=== PATIENT | female | born 1965 | race Two or more races ===

== ENCOUNTER 2024-05-24 18:12 | Emergency (ER) | payer OTHER, MEDICAID ==
[~2024-05-24] VITALS: Ht 157.5 cm; Wt 98.8 kg
[2024-05-24 19:37] LABS: Urine Bacteria FEW /hpf (None Seen); Urine Blood Negative /uL (Negative); Urine Budding Yeast OCCASIONAL /hpf (None Seen); Urine Clarity Turbid (Clear); Urine Color Light-Yellow (Yellow); Urine Mucus FEW (None Seen); Urine Protein, UAD Negative (Negative); Urine Specific Gravity 1.024 (1.001-1.035); Urine Urobilinogen Normal (Negative); Urine WBC 2 /hpf (0 - 5); Urine pH 5.5 (5.0-9.0)
[2024-05-24 20:35] VITALS: BP 142/65; PULSE 87; RESP 20; TEMP 98.2; O2SAT 97
[2024-05-24] MEDS ORDERED: PRED10TA PO (21:27)
[2024-05-24] MEDS ORDERED: ALBUAER3 IN (21:27)
[2024-05-24] MEDS ORDERED: AMOX875T4 PO (21:27)
[2024-05-24] MEDS ORDERED: GUAI200T6 PO (21:51)
== END 2024-05-24 23:26 | disposition home or self-care (01) ==
LOC: ER 18:12
DX: J06.9 Acute upper respiratory infection, unspecified (principal); E11.9 Type 2 diabetes mellitus without complications; Z98.890 Other specified postprocedural states
CPT/HCPCS: 71045; 81001; 82962

== ENCOUNTER 2024-12-18 21:25 | Emergency (ER) | payer OTHER, MEDICAID ==
[~2024-12-18] VITALS: Ht 157.5 cm; Wt 88.7 kg
[~2024-12-18 21:25] MED LIST: ALBUAER3 IN; AMOX875T4 PO; GUAI200T6 PO
--- NOTE | 2024-12-18 22:06 | ED.PDOC ---
GI ASSESSMENT HPI Comments 59 y.o female with PMHx of DM, presents to the ED for a chief complaint of diarrhea that started one day ago. Patient reports multiple episodes of diarrhea per day and states she is now feeling nauseous and developed cold sweats. Patient denies any recent new food, travel outside the country, vomiting, bloody stool, fever. Vital signs were stable on arrival. Chief Complaint: Diarrhea Time Seen by MD: 22:00 Primary Care Provider: KARINA Reviewed Notes: Nurses Notes, Allergies Allergies: Coded Allergies: Diphenhydramine (Verified Adverse Reaction, Unknown, LOW TOLERANCE, 05/24/24) Home Meds Active Scripts Loperamide Hcl ([facility] ANTI-DIARRHEAL) 2 Mg Cap, 2 MG PO TID, #20 CAP Prov:NACHO IZAGUIRRE PAC 12/19/24 Dicyclomine Hcl (BENTYL CAPSULE) 10 Mg Cp, 1 CAP PO Q6HPRN, #20 CAP 0 Refills Prov:NACHO IZAGUIRRE 12/19/24 Ondansetron Odt 4MG Tab (ZOFRAN PO) 4 Mg Tb, 4 MG PO Q6HP PRN, #15 TAB ODT TAB-DISSOLVE IN MOUTH, THEN SWALLOW Prov:NACHO IZGAUIRRE 12/19/24 Guaifenesin (Guaifenesin) 200 Mg Tab, 200 MG PO Q4HPRN, #20 TAB 0 Refills Prov:RODRICK KEARNS 05/24/24 Albuterol Sulfate (VENTOLIN MDI) 90 Mcg Ih, 2 PUFF IN Q6HPRN, #1 INH 0 Refills Prov:RODRICK KEARNS 05/24/24 Amoxicillin & Pot Clavulanate (Amoxicillin/Potassium Cla) 875 Mg Tab, 1 TAB PO BID for 7 Days, #14 TAB 0 Refills Prov:RODRICK KEARNS 05/24/24 Information Source: Patient Mode of Arrival: Ambulatory Timing: Days (1) Duration: Since onset Prehospital treatment: None Quality: None Vomitus: None Stool: Moderate, Loose, Watery Severity: Moderate Recent: None Recent Hx of: None Pain Location: None Modifying Factors: Nothing Associated sign and symptoms: Nausea, Diarrhea Past Medical History PAST MEDICAL HISTORY: DM Surgical History: Denies all surgeries PHOTO EQUIPMENT TECHNICIAN History: No Pertinent PHOTO EQUIPMENT TECHNICIAN History Family History Family History: Unknown Social History Smoker: Non-Smoker Alcohol: Denies ETOH Use Drugs: Denies Drug Use Lives In: Home Constitutional: reports: sweats; denies: chills, diaphoresis, fatigue, fever, malaise, weakness, others EENTM: denies: blurred vision, double vision, ear bleeding, ear discharge, ear drainage, ear pain, ear ringing, eye pain, eye redness, hearing loss, mouth pain, mouth swelling, nasal discharge, nose bleeding, nose congestion, nose pain, photophobia, tearing, throat pain, throat swelling, voice changes, others Respiratory: denies: cough, hemoptysis, orthopnea, SOB at rest, shortness of breath, SOB with excertion, stridor, wheezing, others Cardiovascular: denies: chest pain, dizzy spells, diaphoresis, Dyspnea on exertion, edema, irregular heart beat, left arm pain, lightheadedness, palpitations, PND, syncope, others Gastrointestinal: reports: diarrhea, nausea; denies: abdomen distended, abdominal pain, blood streaked bowels, constipated, dysphagia, difficulty swallowing, hematemesis, melena, poor appetite, poor fluid intake, rectal ble eding, rectal pain, vomiting, others Genitourinary: denies: abnormal vagina bleeding, burning, dyspareunia, dysuria, flank pain, frequency, hematuria, incontinence, pain, , vagina discharge, urgency, others Neurological: denies: dizziness, fainting, headache, left sided numbness, left sided weakness, numbness, paresthesia, pre-existing deficit, right sided numbness, right sided weakness, seizure, speech problems, tingling, tremors, weakness, others Musculoskeletal: denies: back pain, gout, joint pain, joint swelling, muscle pain, muscle stiffness, neck pain, others Integumetry: denies: bruises, change in color, change in hair/nails, dryness, laceration, lesions, lumps, rash, wounds, others Allergic/Immunocompromised: denies: Difficulty Healing, Frequent Infections, Hi ves, Itching, others Hematologic/Lymphatic: denies: anemia, blood clots, easy bleeding, easy bruising, swollen glands, others Endocrine: denies: excessive hunger, excessive sweating, excessive thirst, excessive urination, flushing, intolerance to cold, intolerance to heat, unexplained weight gain, unexplained weight loss, others Psychiatric: denies: anxiety, bipolar disorder, depression, hopeless, panic disorder, schizophrenia, sleepless, suicidal, others All Other Systems: Reviewed and Negative Physical Exam General Appearance: No Apparent Distress, Normal HEENT: Normal ENT Inspection, Pharynx Normal, TMs Normal Neck: Full Range of Motion, Non-Tender, Normal, Normal Inspection Respiratory: Chest Non-Tender, Lungs Clear, No Accessory Muscle Use, No Respiratory Distress, Normal Breath Sounds Cardiovascular: No Edema, No JVD, No Murmur, No Gallop, Normal Peripheral Pulses, Regular Rate/Rhythm Breast Exam: Deferred Gastrointestinal: No Pulsatile Mass, Normal Bowel Sounds, Soft, Other (Diffuse bilateral lower abdominal/pelvic tenderness to palpation. No signs of trauma. Difficult to assess due to body habitus.) Genitalia: Deferred Pelvic: Deferred Rectal: Deferred Extremities: No calf tenderness, Normal capillary refill, Normal inspection, Normal range of motion, Non-tender, No pedal edema Musculoskeletal : Apperance: Normal Neurologic: Alert, No Motor Deficits, Normal Affect, Normal Mood, No Sensory Deficits Cerebellar Function: Normal Reflexes: Normal Skin: Dry, Normal Color, Warm Lymphatic: No Adenopathy Was a procedure done? Was a procedure done?: No GI differential Dx Differential Diagnosis: UTI, Dehydration, Food Poisoning, Bacterial, Viral X-Ray, Labs, Meds, VS Vital Signs Date Time Temp Pulse Resp B/P (MAP) Pulse Ox O2 Delivery O2 Flow Rate FiO2 12/19/24 00:57 98.1 102 16 140/77 (98) 95 98.1 12/19/24 00:57 102 16 95 Room Air* 0 21 12/18/24 21:32 98.7 119 20 120/81 (94) 96 Lab Test 12/19/24 02:46 12/19/24 00:47 Range/Units Urine Color Yellow Yellow Urine Clarity Turbid H Clear Urine pH 5.5 5.0-9.0 Urine Specific [place] 1.030 1.001-1.035 Urine Protein 1+ H Negative Urine Ketones 1+ H Negative Urine Blood Negative Negative /uL Urine Nitrite Negative Negative Urine Bilirubin Negative Negative Urine Urobilinogen 2 H Negative mg/dL Urine Leukocyte Esterase Negative Negative /uL Urine RBC 7 0 - 4 /hpf Urine Microscopic WBC 3 0-5 /HPF Urine Squamous Epithelial Cells Few <5 /hpf Urine Bacteria None seen None Seen /hpf Urine Hyaline Casts Mod 0 - 2 /lpf Urine Mucus Few None Seen Urine Glucose 3+ H Normal mg/dL Influenza Type A Antigen Negative Negative Influenza Type B Antigen Negative Negative SARS-CoV-2 Antigen (Rapid) Negative NEGATIVE Current Medications Medications (Trade) Dose Ordered Sig/John Route Start Time Stop Time Status Last Admin Dicyclomine HCl (Bentyl Injection) 20 mg ONCE ONCE IM 12/18/24 22:00 12/18/24 22:01 DC 12/19/24 00:50 X-Ray, Labs, Meds, VS Comment Swabs studies were unremarkable for any COVID or influenza. Urine was pending at time of this note. Patient care will be transferred to Dr. Machado for evaluation of urine results when returned. Once reviewed, he will respond accordingly. Time of 1ST Reevaluation: 01:44 Reevaluation 1ST: Improved Consultation: PCP Patient Education/Counseling: Diagnosis, Treatment, Prognosis Family Education/Counseling: Diagnosis, Treatment, No Family Present Departure 1 Departure Time of Disposition: :45 Impression: Primary Impression: Viral gastroenteritis Additional Impression: UTI (urinary tract infection) Qualified Codes: N30.00 - Acute cystitis without hematuria Disposition: HOME / SELF CARE / HOMELESS Condition: Stable Additional Instructions: Advised patient utilize medication as needed for symptomatic relief as well as maintaining high quality hydration throughout illness event. Patient should be matching oral fluid intake with diarrhea events. e-Prescriptions Levofloxacin Hemihydrate (LEVAQUIN 500 MG) 500 Mg Tab 1 TAB PO DAILY, #7 TAB Prov: DOT MACHADO MD 12/19/24 Loperamide Hcl ([facility] ANTI-DIARRHEAL) 2 Mg Cap 2 MG PO TID, #20 CAP Prov: NACHO IZAGUIRRE PAC 12/19/24 Dicyclomine Hcl (BENTYL CAPSULE) 10 Mg Cp 1 CAP PO Q6HPRN, #20 CAP 0 Refills Prov: NACHO IZAGUIRRE 12/19/24 Ondansetron Odt 4MG Tab (ZOFRAN PO) 4 Mg Tb 4 MG PO Q6HP PRN, #15 TAB ODT TAB-DISSOLVE IN MOUTH, THEN SWALLOW Prov: NACHO IZAGUIRRE PAC 12/19/24 Discharged With: Self, Friend Critical Care Note Critical Care Time?: No Stability Stability form required: No I personally scribed for ZINANACHO KC ([email or web address]) on 12/18/24 at 22:06. Electronically submitted by Svetlana Chavez ([facility]). NACHO IZAGUIRRE Dec 18, 2024 22:06 DOT MACHADO MD Dec 19, 2024 05:28
[2024-12-19] MEDS: ONDANSETRON ODT 4 MG TAB PO ONE (00:50)
[2024-12-19] MEDS: DICYCLOMINE HCL (10MG/ML) 2 ML AMPULE IM ONE (00:50)
[2024-12-19 00:57] VITALS: BP 140/77; PULSE 102; RESP 16; TEMP 98.1; O2SAT 95
[2024-12-19 01:40] LABS: Rapid Influenza A Negative (Negative); Rapid Influenza B Negative (Negative)
[2024-12-19 01:41] LABS: COVID19 ANTIGEN SOFIA FIA NEGATIVE (NEGATIVE)
[2024-12-19] MEDS ORDERED: DICY10CA PO (01:48)
[2024-12-19] MEDS ORDERED: ZOFR4T PO (01:48)
[2024-12-19] MEDS ORDERED: LOPE-20 PO (01:48)
[2024-12-19 02:47] LABS: Urine Bacteria None Seen /hpf (None Seen)
[2024-12-19 03:10] LABS: Urine Blood Negative /uL (Negative); Urine Clarity Turbid (Clear); Urine Color Yellow (Yellow); Urine Hyaline Cast MOD /lpf (0 - 2); Urine Mucus FEW (None Seen); Urine Protein, UAD 1+ (Negative); Urine Squamous Epithelial Cell FEW /hpf (<5); Urine Urobilinogen 2 mg/dL (Negative); Urine WBC 3 /HPF (0-5); Urine pH 5.5 (5.0-9.0)
--- NOTE | 2024-12-19 04:34 | DVH ---
EXAM: CT CT AB PEL WO CON-NO ORAL OR IV HISTORY: Diarrhea/ ABD pain COMPARISON: None TECHNIQUE: Helical CT images of the abdomen and pelvis were performed without IV contrast. Sagittal and coronal reformatted images were obtained. This CT exam was performed using one or more of the following dos e reduction techniques: Automated exposure control, adjustment of the mA and/or kv according to patie nt size, or the use of iterative reconstruction techniques. Radiation Dose : Abdomen/Pelvis: CTDIvol 20.34 mGy, DLP 1194.1 mGy*cm. FINDINGS: CT abdomen: The lung bases are clear. The heart is not enlarged. There are coronary artery calcifica tions. There may be sludge or gallstones in the dependent portion of the gallbladder. The noncontrast liver, spleen, gallbladder, pancreas, kidneys, and adrenal glands are unremarkable. No abdominal ao rtic aneurysm. CT pelvis: No abnormal bowel dilatation, free air, or free fluid. The appendix and urinary bladder a re unremarkable. There is moderate lumbar degenerative disc disease and facet arthropathy. IMPRESSION: 1. Gallbladder sludge versus gallstones. This may be better characterized with right upper quadrant ultrasound if clinically desired. 2. No evidence of bowel obstruction, acute appendicitis, or other acute process in the abdomen or pel vis.
[2024-12-19] MEDS ORDERED: LEVO500T91 PO (05:28)
== END 2024-12-19 05:36 | disposition home or self-care (01) ==
LOC: ER 21:25
DX: A08.4 Viral intestinal infection, unspecified (principal); N39.0 Urinary tract infection, site not specified; E11.9 Type 2 diabetes mellitus without complications; R19.7 Diarrhea, unspecified; Z88.8 Allergy status to other drugs, medicaments and biological substances; Z20.822 Contact with and (suspected) exposure to COVID-19
CPT/HCPCS: 36415; 74176; 81001; 87426; 87804; 96372; 99285; J0500

== ENCOUNTER 2025-08-13 13:58 | Emergency (ER) | payer OTHER, MEDICAID ==
[~2025-08-13] VITALS: Ht 154.9 cm; Wt 90.0 kg
[~2025-08-13 13:58] MED LIST changes: +DICY10CA PO; +LEVO500T91 PO; +LOPE-20 PO; +ZOFR4T PO
[2025-08-13 14:06] VITALS: BP 108/52; PULSE 97; RESP 18; TEMP 97.9; O2SAT 98
== END 2025-08-13 16:16 | disposition left against medical advice (07) ==
LOC: ER 13:58
DX: R73.9 Hyperglycemia, unspecified (principal); Z53.21 Procedure and treatment not carried out due to patient leaving prior to being seen by health care provider
CPT/HCPCS: 82947; 82962